=== PATIENT | female | born 1960 | race Caucasian/White ===

== ENCOUNTER 2016-06-22 06:21 | Inpatient (IN) | payer OTHER ==
[~2016-06-22] VITALS: Ht 175.3 cm; Wt 128.0 kg
[~2016-06-22 06:21] MED LIST: ADVAIR 250/501 DISK IH; ASTEPRO 0.15%30 ML BOTH NARES; CLARINEX-D 121 EACH PO; CYMBALTA60 MG PO; DILAUDID2 MG PO; FERROUS SULFAT325 MG PO; FLEXERIL10 MG PO; HYDROCHLOROTHIA25 MG PO; HYDRODIURIL PO; IRON325 M1 PO; LOVENOX40 MG/0.4 SC; MOBIC15 MG PO; MORPHINE SULFAT15 M1 PO; MS CONTIN,ORAMO15 M1 PO; MYRBETRIQ50 MG PO; NAPROXEN500 M2 PO; NASACORT AQ16.5 GM NS; NEURONTIN300 MG PO; NEURONTIN600 MG PO; NEXIUM40 MG PO; OMEPRAZOLE40 M1 PO; PERCOCET 10/1 TABLET PO; PERCOCET 7.51 TABLET PO; PROAIR HFA8.5 GM IH; SENNA PLUS TAB1 EACH PO; SINGULAIR10 MG PO; TENORMIN25 MG PO; TRAZODONE HCL100 MG PO; TRAZODONE HCL50 MG PO; VISTARIL25 MG PO; ZOLOFT50 MG PO
[2016-06-22 08:05] VITALS: BP 151/91
[2016-06-22 12:53] LABS: MCV 84.1 FL (83-99); PLATELET COUNT 193 K/uL (156-360); RBC DIS.WIDTH-CV 13.5 % (11.8-14.6); RBC DIS.WIDTH-SD 41.6 % (39-53); RED BLOOD COUNT 5.23 M/uL (3.80-5.20)
[2016-06-22 13:43] VITALS: BP 116/64
[2016-06-22 15:56] VITALS: BP 105/57
[2016-06-22 20:25] VITALS: BP 179/80
[2016-06-23 00:15] VITALS: BP 140/65
[2016-06-23 04:25] VITALS: BP 122/62
[2016-06-23 05:23] LABS: MCV 82.9 FL (83-99)
[2016-06-23 05:50] LABS: ANION GAP 9 MEQ/L (2-14); CHLORIDE 98 MEQ/L (99-109); GFR ESTIMATE (CALCULATED) > 59 mL/min/; GLUCOSE 134 mg/dL (70-99); SAMPLE HEMOLYSIS CHECK 0; SAMPLE ICTERIC CHECK 0; SAMPLE LIPEMIA CHECK 0; SODIUM 135 MEQ/L (136-147); UREA NITROGEN (BUN) 17 mg/dL (9-23)
[2016-06-23 05:55] LABS: POTASSIUM 3.3 MEQ/L (3.7-5.4)
[2016-06-23 08:00] VITALS: BP 143/73
[2016-06-23 12:16] VITALS: BP 145/66
[2016-06-23 16:02] VITALS: BP 127/77
[2016-06-23 19:45] VITALS: BP 109/67
[2016-06-24 00:15] VITALS: BP 131/78
[2016-06-24 04:27] VITALS: BP 139/64
[2016-06-24 05:43] LABS: HEMATOCRIT 41.9 % (36.0-46.0)
[2016-06-24 06:10] LABS: ANION GAP 10 MEQ/L (2-14); CHLORIDE 99 MEQ/L (99-109); GFR ESTIMATE (CALCULATED) > 59 mL/min/; GLUCOSE 119 mg/dL (70-99); POTASSIUM 3.6 MEQ/L (3.7-5.4); SAMPLE HEMOLYSIS CHECK 0; SAMPLE ICTERIC CHECK 0; SAMPLE LIPEMIA CHECK 0; SODIUM 141 MEQ/L (136-147); UREA NITROGEN (BUN) 12 mg/dL (9-23)
[2016-06-24 08:12] VITALS: BP 121/64
[2016-06-24] MEDS ORDERED: OXYCODONE HCL5 MG PO (08:40)
[2016-06-24] MEDS ORDERED: TYLENOL REGULA325 MG PO (08:40)
[2016-06-24] MEDS ORDERED: SENNA PLUS TAB1 EACH PO (08:40)
[2016-06-24] MEDS ORDERED: LOVENOX40 MG/0.4 SC (08:40)
[2016-06-24] MEDS ORDERED: MORPHINE SULFAT15 M1 PO (08:40)
[2016-06-24 11:40] VITALS: BP 132/78
== END 2016-06-24 14:10 | DRG 470 ==
LOC: 2SOUTH 06:21 → 3WEST 13:04
PROVIDERS: Orthopaedic Surgery; Physician Assistant
PROC: 0SRD0J9 Replacement of Left Knee Joint with Synthetic Substitute, Cemented, Open Approach (ICD-10-PCS; principal; 2016-06-22)
DX: M17.12 Unilateral primary osteoarthritis, left knee (principal); Z68.41 Body mass index [BMI] 40.0-44.9, adult; I10 Essential (primary) hypertension; J45.909 Unspecified asthma, uncomplicated; G20 Parkinson's disease; F41.9 Anxiety disorder, unspecified; F32.9 Major depressive disorder, single episode, unspecified; M79.7 Fibromyalgia; G62.9 Polyneuropathy, unspecified; K58.9 Irritable bowel syndrome, unspecified; K44.9 Diaphragmatic hernia without obstruction or gangrene; E66.9 Obesity, unspecified; Z96.651 Presence of right artificial knee joint; Z86.718 Personal history of other venous thrombosis and embolism
CPT/HCPCS: 73560; 80048; 85014; 85018; 85027; 94640; 94640 76; 99202; J0131; J0690; J1170; J1650; J2250; J2405; J7030; J7050

== ENCOUNTER 2016-11-25 09:35 | Emergency (ER) | payer OTHER ==
[~2016-11-25] VITALS: Ht 175.3 cm; Wt 131.2 kg
[~2016-11-25 09:35] MED LIST changes: +OXYCODONE HCL5 MG PO; +TYLENOL REGULA325 MG PO
[2016-11-25 11:16] LABS: ADD MIUA? YES; BILIRUBIN NEGATIVE; BLOOD LARGE; COLOR AMBER ((YELLOW)); GLUCOSE (STRIP) NEGATIVE; KETONES NEGATIVE; LEUKOCYTES LARGE; NITRITE NEGATIVE; PROTEIN (STRIP) 100; SPECIFIC GRAVITY 1.014 (1.000-1.030); UROBILINOGEN 0.2 MG/DL (0.2-1.0)
[2016-11-25 11:20] LABS: HEMATOCRIT 42.3 % (36.0-46.0); MCH 26.8 PG (29.0-34.0); MCHC 33.6 G/DL (30.0-36.0); MCV 79.8 FL (83-99); MEAN PLAT.VOLUME 10.7 uM^3 (9.5-12.4); PLATELET COUNT 116 K/uL (156-360); RBC DIS.WIDTH-CV 15.1 % (11.8-14.6); RBC DIS.WIDTH-SD 43.5 % (39-53); WHITE BLOOD COUNT 8.6 K/uL (4.1-10.2)
[2016-11-25 11:31] LABS: CHLORIDE 103 mEq/L (99-109); POTASSIUM 2.9 mEq/L (3.7-5.4); SODIUM 140 mEq/L (136-147)
[2016-11-25 11:32] LABS: BACTERIA 1+ /HPF; CASTS NONE SEEN /LPF; CRYSTALS NONE SEEN; EPITHELIAL CELLS 1+ /HPF; MUCUS NONE SEEN /LPF; RED BLOOD CELLS TNTC /HPF (0-5); UCUL ADDED? YES; WHITE BLOOD CELLS TNTC /HPF (0-5)
[2016-11-25 11:33] LABS: GLUCOSE 122 mg/dL (70-99)
[2016-11-25 11:34] LABS: ANION GAP 13 MEQ/L (2-14)
[2016-11-25 11:36] LABS: GFR ESTIMATE (CALCULATED) > 59 mL/min/
[2016-11-25 11:37] LABS: UREA NITROGEN (BUN) 17 mg/dL (9-23)
[2016-11-25 11:52] LABS: EOSINOPHIL (%) 0.1 % (0-5); HEMATOLOGY COMMENT 1 SMEAR COMPATIBLE; IMMATURE GRANULOCYTE COUNT 0.2 K/uL; INSTRUMENT ABS NEUTROPHIL CT 7.6 K/uL; LYMPHOCYTE COUNT 0.5 K/uL (1.0-2.8); MONOCYTE (%) 3.4 % (3-12); MONOCYTE COUNT 0.3 K/uL (0-0.8); NEUTROPHIL (%) 88.4 % (45-76); NEUTROPHIL COUNT 7.6 K/uL (1.8-6.4)
[2016-11-25] MEDS ORDERED: MORPHINE SULFAT30 M2 PO (11:52)
[2016-11-25] MEDS ORDERED: OXYCODONE HCL10 MG PO (11:53)
[2016-11-25] MEDS ORDERED: CIPRO500 MG PO (13:39)
[2016-11-25 14:30] VITALS: BP 123/76
== END 2016-11-25 14:30 | disposition home or self-care (01) ==
LOC: EME 09:35
PROVIDERS: Emergency Medicine
DX: N12 Tubulo-interstitial nephritis, not specified as acute or chronic (principal); R44.0 Auditory hallucinations; E87.6 Hypokalemia; J45.909 Unspecified asthma, uncomplicated; F41.9 Anxiety disorder, unspecified; G62.9 Polyneuropathy, unspecified; M06.9 Rheumatoid arthritis, unspecified
CPT/HCPCS: 80048; 81003; 85025; 87077; 87086; 87186; 90832; 99281; 99284; J0696; J2270; J7050

== ENCOUNTER 2016-11-27 12:47 | Inpatient (IN) | payer OTHER ==
[~2016-11-27] VITALS: Ht 175.3 cm; Wt 128.5 kg
[~2016-11-27 12:47] MED LIST changes: +CIPRO500 MG PO; +MORPHINE SULFAT30 M2 PO; +OXYCODONE HCL10 MG PO
[2016-11-27 15:30] LABS: HEMATOCRIT 44.1 % (36.0-46.0); MCH 26.4 PG (29.0-34.0); MCHC 33.1 G/DL (30.0-36.0); MCV 79.6 FL (83-99); MEAN PLAT.VOLUME 10.3 uM^3 (9.5-12.4); PLATELET COUNT 147 K/uL (156-360); RBC DIS.WIDTH-CV 15.1 % (11.8-14.6); RBC DIS.WIDTH-SD 43.8 % (39-53); RED BLOOD COUNT 5.54 M/uL (3.80-5.20); WHITE BLOOD COUNT 4.4 K/uL (4.1-10.2)
[2016-11-27 15:39] LABS: CHLORIDE 97 mEq/L (99-109); SODIUM 138 mEq/L (136-147)
[2016-11-27 15:40] LABS: GLUCOSE 112 mg/dL (70-99)
[2016-11-27 15:42] LABS: ANION GAP 16 MEQ/L (2-14)
[2016-11-27 15:44] LABS: GFR ESTIMATE (CALCULATED) > 59 mL/min/
[2016-11-27 15:45] LABS: UREA NITROGEN (BUN) 14 mg/dL (9-23)
[2016-11-27 16:15] LABS: EOSINOPHIL (%) 0.2 % (0-5); IMMATURE GRANULOCYTE (%) 0.5 % (0.0-0.7); INSTRUMENT ABS NEUTROPHIL CT 3.2 K/uL; LYMPHOCYTE COUNT 0.8 K/uL (1.0-2.8); MONOCYTE (%) 8.8 % (3-12); MONOCYTE COUNT 0.4 K/uL (0-0.8); NEUTROPHIL (%) 71.3 % (45-76); NEUTROPHIL COUNT 3.2 K/uL (1.8-6.4)
[2016-11-27 16:47] LABS: ADD MIUA? NO; BILIRUBIN NEGATIVE; BLOOD NEGATIVE; COLOR YELLOW ((YELLOW)); GLUCOSE (STRIP) NEGATIVE; KETONES 20; LEUKOCYTES NEGATIVE; NITRITE NEGATIVE; PROTEIN (STRIP) NEGATIVE; SPECIFIC GRAVITY 1.015 (1.000-1.030); UCUL ADDED? NO; UROBILINOGEN 0.2 MG/DL (0.2-1.0)
[2016-11-27 17:05] LABS: TROP-I INTERPRETATION NEGATIVE; TROPONIN-I < 0.01 ng/mL (0.0-0.30)
[2016-11-27] MEDS ORDERED: ZOLOFT100 MG PO (18:55)
[2016-11-27] MEDS ORDERED: MOTRIN800 MG PO (18:56)
[2016-11-27] MEDS ORDERED: VOLTAREN 1% GE100 GM TP (19:00)
[2016-11-27] MEDS ORDERED: DAILY VITAMIN1 EAC4 PO (19:53)
[2016-11-27] MEDS ORDERED: ZOLPIDEM TARTRAT5 MG PO (20:00)
[2016-11-27 20:13] VITALS: BP 134/88
[2016-11-28 07:24] VITALS: BP 115/74
[2016-11-28 15:37] VITALS: BP 91/54
[2016-11-29 07:40] VITALS: BP 143/87
[2016-11-29] MEDS ORDERED: RISPERDAL2 MG PO (10:40)
[2016-11-29] MEDS ORDERED: NITROFURANTOIN100 M3 PO (10:40)
== END 2016-11-29 12:01 | disposition home or self-care (01) | DRG 885 ==
LOC: EME 12:47 → 1WEST 18:03 → EDOF 18:03 → 1WEST 19:40 → ENRESERV 19:50 → 1WEST 11-29 12:01
PROVIDERS: Emergency Medicine
DX: F33.3 Major depressive disorder, recurrent, severe with psychotic symptoms (principal); F41.9 Anxiety disorder, unspecified; N39.0 Urinary tract infection, site not specified; B96.20 Unspecified Escherichia coli [E. coli] as the cause of diseases classified elsewhere; I10 Essential (primary) hypertension; E11.40 Type 2 diabetes mellitus with diabetic neuropathy, unspecified; G20 Parkinson's disease; J45.909 Unspecified asthma, uncomplicated; M06.9 Rheumatoid arthritis, unspecified; K58.9 Irritable bowel syndrome, unspecified; J30.2 Other seasonal allergic rhinitis; Z86.72 Personal history of thrombophlebitis
CPT/HCPCS: 80048; 81003; 84484; 85025; 90839; 93005; 94640; 94640 76; 99281; 99285; J2060; Q0177